=== PATIENT | female | born 1935 | race Two or more races ===

== ENCOUNTER 2024-04-22 11:43 | Inpatient (IN) | payer MEDICARE, OTHER ==
[~2024-04-22] VITALS: Ht 152.4 cm; Wt 98.0 kg
--- NOTE | 2024-04-22 12:10 | ED.PDOC ---
Musculoskeletal HPI Comments 88y F who presents to the ED for chief complaint of fall injury. Pt has history of Alzheimer and is on hospice and family states pt had fall this past Tuesday at approx 12 PM. Pt did hit her head but denies any associated loss of consciousness. Pt family noticed pt was in pain by the L lower hip area when attempting to move her and states they called EMS for pt to be evaluated for her pain. Pt in the ED, is alert but unable to answer any questions at this time. EMS states pt had no shortening, bruising, redness or swelling near R hip but states pt was in pain when attempting to move her to EMS gurney. Pt otherwise denies any other symptoms at this time. Chief Complaint: Fall Injury Time Seen by MD: 12:06 Reviewed Notes: Nurses Notes, Medications, Allergies Allergies: Coded Allergies: NO KNOWN ALLERGIES (Unverified , 04/22/24) Information Source: Emergency Med Personnel Mode of Arrival: EMS Brought in by: EMS Location: Right Extremity Location: Hip Timing: Days Prehospital treatment: None Severity: Moderate Able to Move Extremity: Yes Bear Weight: Limited Pain: Moderate Mechanism: Spontaneous Circumstances: Fall Onset of Symptoms: Spontaneous Symptoms: Pain DVT Risk Factors: NONE Last Tetanus: Unknown Associated signs and symptoms: None Past Medical History PAST MEDICAL HISTORY: DM, HTN Past Medical History (Other): alzheimers Surgical History: Unknown BACTERIOLOGIST PHARMACEUTICAL History: Denies all BACTERIOLOGIST PHARMACEUTICAL Hx Family History Family History: Unknown Social History Smoker: Non-Smoker Alcohol: Denies ETOH Use Drugs: Denies Drug Use 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 Constitutional: denies: chills, diaphoresis, fatigue, fever, malaise, sweats, weakness, others EENTM: denies: blurred vision, double vision, ear bleeding, ear discharge, ear drainage, ear pain, ear ringing, eye pain, eye redness, hearing loss, mouth pain, mouth swelling, nasal discharge, nose bleeding, nose congestion, nose pain, photophobia, tearing, throat pain, throat swelling, voice changes, others Respiratory: denies: cough, hemoptysis, orthopnea, SOB at rest, shortness of breath, SOB with excertion, stridor, wheezing, others Cardiovascular: denies: chest pain, dizzy spells, diaphoresis, Dyspnea on exertion, edema, irregular heart beat, left arm pain, lightheadedness, palpitations, PND, syncope, others Gastrointestinal: denies: abdomen distended, abdominal pain, blood streaked bowels, constipated, diarrhea, dysphagia, difficulty swallowing, hematemesis, melena, nausea, poor appetite, poor fluid intake, rectal bleeding, rectal pain, vomiting, others Genitourinary: denies: abnormal vagina bleeding, burning, dyspareunia, dysuria, flank pain, frequency, hematuria, incontinence, pain, , vagina discharge, urgency, others Neurological: denies: dizziness, fainting, headache, left sided numbness, left sided weakness, numbness, paresthesia, pre-existing deficit, right sided numbness, right sided weakness, seizure, speech problems, tingling, tremors, weakness, others Musculoskeletal: reports: joint pain (r hip); denies: back pain, gout, joint swelling, muscle pain, muscle stiffness, neck pain, others Integumetry: denies: bruises, change in color, change in hair/nails, dryness, laceration, lesions, lumps, rash, wounds, others Allergic/Immunocompromised: denies: Difficulty Healing, Frequent Infections, Hives, Itching, others Hematologic/Lymphatic: denies: anemia, blood clots, easy bleeding, easy bruising, swollen glands, others Endocrine: denies: excessive hunger, excessive sweating, excessive thirst, excessive urination, flushing, intolerance to cold, intolerance to heat, unexplained weight gain, unexplained weight loss, others Psychiatric: denies: anxiety, bipolar disorder, depression, hopeless, panic disorder, schizophrenia, sleepless, suicidal, others All Other Systems: Reviewed and Negative Physical Exam General Appearance: Moderate Distress HEENT: Normal ENT Inspection, Pharynx Normal, TMs Normal Neck: Full Range of Motion, Non-Tender, Normal, Normal Inspection Respiratory: Chest Non-Tender, Lungs Clear, No Accessory Muscle Use, No Respiratory Distress, Normal Breath Sounds Cardiovascular: No Edema, No JVD, No Murmur, No Gallop, Normal Peripheral Pulses, Regular Rate/Rhythm Breast Exam: Deferred Gastrointestinal: No Organomegaly, Non Tender, No Pulsatile Mass, Normal Bowel Sounds, Soft Genitalia: Deferred Pelvic: Deferred Rectal: Deferred Extremities: No calf tenderness, Normal capillary refill, No pedal edema Musculoskeletal : Location: Left Extremity Location: Hip Apperance: Deformity, Limited ROM, Tenderness: Moderate Neurologic: Alert, body service team member II-XII nml as Tested, No Motor Deficits, Normal Affect, Normal Mood, No Sensory Deficits Cerebellar Function: Normal Reflexes: Normal Skin: Dry, Normal Color, Warm Lymphatic: No Adenopathy Was a procedure done? Was a procedure done?: No Differential Diagnosis EXT Differential Diagnosis: Fracture, Sprain, Dislocation, DJD, Contusion, Strain, Rheumatoid, Arthritis X-Ray, Labs, Meds, VS Vital Signs Date Time Temp Pulse Resp B/P (MAP) Pulse Ox O2 Delivery O2 Flow Rate FiO2 04/22/24 11:51 98.8 92 16 124/75 (91) 97 Lab Test 04/22/24 12:33 Range/Units White Blood Count 8.7 4.4-10.8 10^3/uL Red Blood Count 3.48 L 4.0-5.20 10^6/uL Hemoglobin 11.3 L 12.2-16.2 g/dL Hematocrit 33.5 L 36.0-46.0 % Mean Corpuscular Volume 96.5 80.0-100.0 fL Mean Corpuscular Hemoglobin 32.5 H 28.0-32.0 pg Mean Corpuscular Hemoglobin Concent 33.7 32.0-36.0 g/dL Red Cell Distribution Width 13.7 11.8-14.3 % Platelet Count 363 140-450 10^3/uL Mean Platelet Volume 7.4 6.9-10.8 fL Neutrophils (%) (Auto) 71.7 37.0-80.0 % Lymphocytes (%) (Auto) 18.9 10.0-50.0 % Monocytes (%) (Auto) 6.3 0.0-12.0 % Eosinophils (%) (Auto) 2.1 0.0-7.0 % Basophils (%) (Auto) 1.0 0.0-2.0 % Neutrophils # (Auto) 6.2 1.6-8.6 10 ^3/uL Lymphocytes # (Auto) 1.6 0.4-5.4 10 ^3/uL Monocytes # (Auto) 0.5 0-1.3 10 ^3/uL Eosinophils # (Auto) 0.2 0-0.8 10 ^3/uL Basophils # (Auto) 0.1 0-0.2 10 ^3/uL Nucleated Red Blood Cells 0.1 % Sodium Level 139 136-145 mmol/L Potassium Level 4.3 3.5-5.1 mmol/L Chloride Level 110 H 98-107 mmol/L Carbon Dioxide Level 24 20-31 mmol/L Anion Gap 5 5-15 Blood Urea Nitrogen 22 9-23 mg/dL Creatinine 0.90 0.550-1.02 mg/dL Glomerular Filtration Rate Calc 61 >90 mL/min BUN/Creatinine Ratio 24.4 H 10.0-20.0 Serum Glucose 116 H 74-106 mg/dL Calcium Level 9.2 8.7-10.4 mg/dL The CBC shows mild anemia with a hemoglobin of 11.3 and hematocrit of 33.5 The chemistry panel is within normal limits X-ray of the left hip shows:TECHNIQUE: XY L HIP COMPLETE XRAY Findings/Impression: 2 views of the left hip. Impacted, transcervical neck fracture of the left femur. There is no evidence of dislocation, blastic, or lytic lesions. No radiopaque foreign bodies. No joint effusion or superficial soft tissue abnormalities. IV Hep-Lock was established A Parker catheter is being placed secondary to the patient's hip fracture The patient was being admitted at this time Images Reviewed?: Images reviewed and evaluated by me Time of 1ST Reevaluation: 12:35 Reevaluation 1ST: Unchanged Time of 2ND Reevaluation: 14:34 Reevaluation 2ND: Unchanged Patient Education/Counseling: Diagnosis, Treatment, Prognosis Family Education/Counseling: No Family Present Departure 1 Departure Time of Disposition: 14:34 Impression: Primary Impression: Left displaced femoral neck fracture Additional Impression: History of fall Disposition: ADMITTED INPATIENT Admit to: Med Surg Condition: Fair Critical Care Note Critical Care Time?: No Stability Stability form required: Yes Unstable for transfer: ED Physician Assesment (Clinical assesment) Heart Score Heart Score: Heart Score Response (Comments) Value History N/A 0 EKG N/A 0 Age N/A 0 Risk Factors N/A 0 Troponin N/A 0 Total 0 I personally scribed for JOSE D TOVAR MD ([email or web address]) on 04/22/24 at 12:10. Elec tronically submitted by Anselmo Holt ([email or web address]). I personally scribed for JOSE D TOVAR MD ([email or web address]) on 04/22/24 at 12:12. Electronically submitted by Anselmo Holt ([email or web address]). JOSE D TOVAR MD Apr 22, 2024 12:10
[2024-04-22 12:56] LABS: Basophils # (auto) 0.1 10 ^3/uL (0-0.2); Eosinophils # (auto) 0.2 10 ^3/uL (0-0.8); Eosinophils % (auto) 2.1 % (0.0-7.0); Hematocrit 33.5 % (36.0-46.0); Hemoglobin 11.3 g/dL (12.2-16.2); Lymphocytes # (auto) 1.6 10 ^3/uL (0.4-5.4); Lymphocytes % (auto) 18.9 % (10.0-50.0); Mean Corpuscular Hemoglobin 32.5 pg (28.0-32.0); Mean Corpuscular Hgb Conc. 33.7 g/dL (32.0-36.0); Mean Corpuscular Volume 96.5 fL (80.0-100.0); Monocytes # (auto) 0.5 10 ^3/uL (0-1.3); Monocytes % (auto) 6.3 % (0.0-12.0); Neutrophils # (auto) 6.2 10 ^3/uL (1.6-8.6); Neutrophils % (auto) 71.7 % (37.0-80.0); Nucleated Red Blood Cells % 0.1 %; Platelet Count (auto) 363 10^3/uL (140-450); Red Blood Cells 3.48 10^6/uL (4.0-5.20); Red Cell Distribution Width 13.7 % (11.8-14.3); White Blood Cell 8.7 10^3/uL (4.4-10.8)
[2024-04-22 13:07] LABS: Chloride 110 mmol/L (98-107); Potassium 4.3 mmol/L (3.5-5.1); Sodium 139 mmol/L (136-145)
[2024-04-22 13:08] LABS: Anion Gap 5 (5-15); Carbon Dioxide 24 mmol/L (20-31)
[2024-04-22 13:09] LABS: Calcium 9.2 mg/dL (8.7-10.4)
[2024-04-22 13:13] LABS: Glucose 116 mg/dL (74-106)
[2024-04-22 13:14] LABS: BUN/Creatinine Ratio 24.4 (10.0-20.0); Blood Urea Nitrogen 22 mg/dL (9-23)
--- NOTE | 2024-04-22 14:29 | DVH ---
EXAM: XY L HIP COMPLETE XRAY CLINICAL HISTORY: fall COMPARISON: None TECHNIQUE: XY L HIP COMPLETE XRAY Findings/Impression: 2 views of the left hip. Impacted, transcervical neck fracture of the left femur. There is no evidence of dislocation, blastic, or lytic lesions. No radiopaque foreign bodies. No joint effusion or superficial soft tissue abnormalities.
[2024-04-22 16:00] VITALS: PULSE 89; RESP 13; O2SAT 94
[2024-04-22 16:36] LABS: Urine Bacteria FEW /hpf (None Seen); Urine Blood Negative /uL (Negative); Urine Budding Yeast MODERATE /hpf (None Seen); Urine Clarity Turbid (Clear); Urine Color Yellow (Yellow); Urine Mucus FEW (None Seen); Urine Protein, UAD 2+ (Negative); Urine Specific Gravity 1.023 (1.001-1.035); Urine Urobilinogen Normal (Negative); Urine WBC 27 /hpf (0 - 5); Urine pH 7.5 (5.0-9.0)
[2024-04-22] MEDS ORDERED: HYDROcodone-ACET 5/325MG TAB PO PRN (18:00)
[2024-04-22] MEDS ORDERED: DOCUSATE SOD 100 MG CAP PO PRN (18:00)
[2024-04-22] MEDS ORDERED: ONDANSETRON HCL 4 MG/2 ML VIAL IV PRN (18:00)
[2024-04-22] MEDS ORDERED: ACETAMINOPHEN 325 MG TAB PO PRN (18:00)
[2024-04-22] MEDS ORDERED: MAALOX PLUS or MAALOX 30 ML PO PRN (18:00)
--- NOTE | 2024-04-22 18:50 | DVHHP2 ---
History of Present Illness Reason for Visit: Fall History of Present Illness 88 yo female with a history of living at home with a family patient has fallen at home and had complaints of pain from the fall due to dementia patient has limited conversation patient family wants to discus the care options as the patient is DNR and has severe dementia NEEDLEWORKER: Dementia Review of Systems Constitutional: No: Fever, Chills, Sweats, Weakness, Malaise, Other Eyes: No: Pain, Vision change, Conjunctivae inflammation, Eyelid inflammation, Other, Redness ENT: No: Ear pain, Ear discharge, Nose pain, Nose discharge, Nose congestion, Mouth pain, Mouth swelling, Throat pain, Throat swelling, Other Respiratory: No: Cough, Dry, Shortness of breath, SOB with excertion, Wheezing, Hemoptysis, Pleuritic Pain, Sputum, Wheezing, Other Cardiovascular: No: Chest Pain, Palpitations, Orthopnea, Paroxysmal Noc. Dyspnea, Edema, Lt Headedness, Other Gastrointestinal: No: Nausea, Vomiting, Abdominal Pain, Diarrhea, Constipation, Melena, Hematochezia, Other Genitourinary: No Dysuria, No Frequency, No Incontinence, No Hematuria, No Retention, No Other Musculoskeletal: leg pain; No: other, neck pain, shoulder pain, arm pain, back pain, hand pain, foot pain Skin: No: Rash, Lesions, Jaundice, Bruising, Other Neurological: No: Weakness, Numbness, Incoordination, Change in speech, Confusion, Seizures, Other Allergies: Coded Allergies: NO KNOWN ALLERGIES (Unverified , 04/22/24) Exam Vital Signs Vital Signs Date Time Temp Pulse Resp B/P (MAP) Pulse Ox O2 Delivery O2 Flow Rate FiO2 04/22/24 18:00 18 132/91 (105) 94 04/22/24 17:00 85 04/22/24 16:00 97.9 97.9 04/22/24 16:00 Room Air* 0 21 General Appearance: Alert, Oriented X3 HEENT: Atraumatic, PERRLA Respiratory: Clear to auscultation, Normal air movement Cardiovascular: Regular rate, Normal S1, Normal S2 Abdominal: Soft Extremities: No clubbing, No cyanosis Skin: No rashes, No breakdown Psych/Mental Status: Other (dementia ) Labs/Xrays Labs Test 04/22/24 16:23 11/10/24 12:33 Range/Units Urine Color Yellow Yellow Urine Clarity Turbid H Clear Urine pH 7.5 5.0-9.0 Urine Specific [place] 1.023 1.001-1.035 Urine Protein 2+ H Negative Urine Ketones Negative Negative Urine Blood Negative Negative /uL Urine Nitrite Negative Negative Urine Bilirubin Negative Negative Urine Urobilinogen Normal Negative mg/dL Urine Leukocyte Esterase 2+ Negative /uL Urine RBC <1 0 - 4 /hpf Urine WBC 27 0 - 5 /hpf Urine Squamous Epithelial Cells Mod <5 /hpf Urine Triple Phosphate Crystals Few None Seen /hpf Urine Bacteria Few H None Seen /hpf Urine Mucus Few None Seen Urine Yeast (Budding) Moderate None Seen /hpf Urine Glucose Normal Normal mg/dL White Blood Count 8.7 4.4-10.8 10^3/uL Red Blood Count 3.48 L 4.0-5.20 10^6/uL Hemoglobin 11.3 L 12.2-16.2 g/dL Hematocrit 33.5 L 36.0-46.0 % Mean Corpuscular Volume 96.5 80.0-100.0 fL Mean Corpuscular Hemoglobin 32.5 H 28.0-32.0 pg Mean Corpuscular Hemoglobin Concent 33.7 32.0-36.0 g/dL Red Cell Distribution Width 13.7 11.8-14.3 % Platelet Count 363 140-450 10^3/uL Mean Platelet Volume 7.4 6.9-10.8 fL Neutrophils (%) (Auto) 71.7 37.0-80.0 % Lymphocytes (%) (Auto) 18.9 10.0-50.0 % Monocytes (%) (Auto) 6.3 0.0-12.0 % Eosinophils (%) (Auto) 2.1 0.0-7.0 % Basophils (%) (Auto) 1.0 0.0-2.0 % Neutrophils # (Auto) 6.2 1.6-8.6 10 ^3/uL Lymphocytes # (Auto) 1.6 0.4-5.4 10 ^3/uL Monocytes # (Auto) 0.5 0-1.3 10 ^3/uL Eosinophils # (Auto) 0.2 0-0.8 10 ^3/uL Basophils # (Auto) 0.1 0-0.2 10 ^3/uL Nucleated Red Blood Cells 0.1 % Sodium Level 139 136-145 mmol/L Potassium Level 4.3 3.5-5.1 mmol/L Chloride Level 110 H 98-107 mmol/L Carbon Dioxide Level 24 20-31 mmol/L Anion Gap 5 5-15 Blood Urea Nitrogen 22 9-23 mg/dL Creatinine 0.90 0.550-1.02 mg/dL Glomerular Filtration Rate Calc 61 >90 mL/min BUN/Creatinine Ratio 24.4 H 10.0-20.0 Serum Glucose 116 H 74-106 mg/dL Calcium Level 9.2 8.7-10.4 mg/dL Assessment/Plan Assessment/Plan Admit to Med/surge Hip Fracture orthopedic consult prn pain management continue with home medications patient is hospice patient with DNR Plan discussed with: Daughter My Orders Orders - JAMES AVILA MD Procedure Category Date Status Time * Orthopedic Consult CONS 04/22/24 Transmitted 17:55 Admit ADMIT 04/22/24 Transmitted 17:57 Code Status CODE 04/22/24 Transmitted 17:57 Npo (Nothing By DIET 04/22/24 Transmitted Mouth) Diet Dinner Basic Metabolic Panel LAB 04/23/24 Verified 04:00 Complete Blood Count LAB 04/23/24 Verified 04:00 Patient Condition ORDERS 04/22/24 Transmitted 17:57 Oxygen By Nasal RT 04/22/24 Transmitted Cannula 17:57 Problem List: (1) History of fall (2) Left displaced femoral neck fracture Date of Service: Apr 22, 2024 Billing Provider: JAMES AVILA MD Common Visit Codes: [id number] INP/OBS CARE (MOD) JAMES AVILA MD Apr 22, 2024 18:50
[2024-04-22] MEDS: D5W 5% 1,000 ML IV SCH (19:03)
[2024-04-22 20:44] VITALS: PULSE 92; RESP 25; O2SAT 93
[2024-04-22 21:41] VITALS: BP 144/79; PULSE 91; RESP 17; TEMP 98.4; O2SAT 96
[2024-04-22 21:45] VITALS: BP 144/79; PULSE 91; RESP 12; TEMP 98.4; O2SAT 96
[2024-04-23] VITALS (9 sets, daily range): BP systolic 121–186; BP diastolic 59–81; PULSE 62–90; RESP 17–20; TEMP 97.6–98.9; O2SAT 95–99
[2024-04-23 06:49] LABS: Chloride 108 mmol/L (98-107); Potassium 3.8 mmol/L (3.5-5.1); Sodium 137 mmol/L (136-145)
[2024-04-23 06:50] LABS: Anion Gap 8 (5-15); Carbon Dioxide 21 mmol/L (20-31)
[2024-04-23 06:52] LABS: Basophils # (auto) 0 10 ^3/uL (0-0.2); Basophils % (auto) 0.4 % (0.0-2.0); Eosinophils # (auto) 0.2 10 ^3/uL (0-0.8); Eosinophils % (auto) 2.8 % (0.0-7.0); Hematocrit 29.4 % (36.0-46.0); Lymphocytes # (auto) 1.2 10 ^3/uL (0.4-5.4); Lymphocytes % (auto) 17.7 % (10.0-50.0); Mean Corpuscular Hemoglobin 32.4 pg (28.0-32.0); Mean Corpuscular Hgb Conc. 33.9 g/dL (32.0-36.0); Mean Corpuscular Volume 95.5 fL (80.0-100.0); Monocytes # (auto) 0.5 10 ^3/uL (0-1.3); Neutrophils % (auto) 72.1 % (37.0-80.0); Platelet Count (auto) 354 10^3/uL (140-450); Red Blood Cells 3.08 10^6/uL (4.0-5.20); Red Cell Distribution Width 13.9 % (11.8-14.3); White Blood Cell 6.9 10^3/uL (4.4-10.8)
[2024-04-23 06:55] LABS: BUN/Creatinine Ratio 27.9 (10.0-20.0); Blood Urea Nitrogen 24 mg/dL (9-23); Glucose 132 mg/dL (74-106)
--- NOTE | 2024-04-23 06:56 | DVH ---
CHEST RADIOGRAPH Indication:cad Technique: Single frontal view of the chest was obtained COMPARISON: None FINDINGS: Lines and Tubes: None Lungs: Congestion Pleura: No effusion. No pneumothorax. Cardiomediastinal contours: Unremarkable Bones: Unremarkable IMPRESSION: Mild congestion
[2024-04-23 07:13] LABS: INR 1.1 (0.9-1.15); Partial Thromboplastin Time 36.2 SEC (24.5-34.5); Prothrombin Time 11.6 sec (9.3-11.8)
[2024-04-23] MEDS: cefTRIAXone 1GM/50ML D5W 50 ML IV SCH (10:56)
--- NOTE | 2024-04-23 11:11 | DVHPNRES ---
Progress Note Date Seen: Apr 23, 2024 Resident Creating Document: SHAD WRIGHT RESIDENT Has the PT tested + for MRSA If YES, has PT been informed?: No Medical Necessity Reason Pt with a Central, PICC or Fol: No Subjective Review of Systems This is an 88-year-old female with past medical history of severe advanced dementia, presents to the ED brought by her family due to a mechanical fall at home while walking. The patient was initially complaining of pain in the left side of the hip. Upon my examination patient is but not oriented and not able to maintain a proper conversation. Initial chest x-ray was showing very mild vascular congestion but grossly unremarkable. Hip x-ray is showing impacted transcervical neck fracture of the left femur. Findings were discussed with her daughter Inge which agreed on proceeding with left hip surgical repair. Orthopedic consult pulse placed and patient was admitted for further assessment and management. Patient is DNR with severe advanced dementia. Patient seen and examined at bedside. Patient is alert but not oriented most likely due to advanced dementia. The patient is unable to maintain proper conversation with medical staff. On my examination, both lower extremities are symmetric and there is no shortage of the left lower extremity compared to the right. There is no external rotation observed at this time. Patient will be scheduled for open internal fixation of the left hip fracture today (04/23/24). ROS unable to obtain due to patient's underlying severe advanced dementia. Objective vital signs Vital Sign Date Time Temp Pulse Resp B/P (MAP) Pulse Ox O2 Delivery O2 Flow Rate FiO2 04/23/24 09:27 97.8 86 18 126/74 (91) 96 97.8 04/22/24 21:45 Room Air* 0 21 Total Intake and Output 04/22/24 04/22/24 04/23/24 15:00 23:00 07:00 Intake Total 120 ml 0 ml Output Total 170 ml Balance 120 ml -170 ml medications Current Medications Medications Dose Ordered Sig/Julio C Route Start Time Stop Time Status Last Admin Dose Admin Al Hydrox/Mg Hydrox/Simethicone 30 ml Q6HP PRN PO 04/22/24 18:00 Docusate Sodium 100 mg BIDPRN PRN PO 04/22/24 18:00 Acetaminophen 650 mg Q6HP PRN PO 04/22/24 18:00 Dextrose 1,000 ml @ 60 mls/hr [id number] IV 04/22/24 18:00 04/22/24 19:03 60 MLS/HR Acetaminophen/ Hydrocodone Bitart 1 tab Q4HP PRN PO 04/22/24 18:00 Ondansetron HCl 4 mg Q4HP PRN IV 04/22/24 18:00 Morphine Sulfate 2 mg Q4HPRN PRN IV 04/22/24 18:00 Ceftriaxone Sodium 50 ml @ 100 mls/hr DAILY@09 IV 04/23/24 10:15 04/23/24 10:56 100 MLS/HR Examination Physical Examination General: Patient alert but not oriented. patient is not able to maintain a proper conversation likely due to advance dementia. HEENT: Normocephalic, atraumatic, moist mucous membranes Respiratory/pulmonary: Clear lungs bilaterally, no associated crackles or wheezes. Cardiovascular: Normal heart sounds S1 and S2 with no associated murmurs Abdomen: Abdomen nondistended, there is no pain to palpation in any of the abdominal quadrants, no palpable masses. Extremities: There is no shortage or external rotation of the left lower extremity compared to the right. Both lower extremity appears symmetric. There is no peripheral edema present at the lower extremities. Peripheral Pulses: 3+ Radial (R). 3+ Radial (L). 3+ Dorsalis pedis (R). 3+ Dorsalis pedis(L) Skin: No rashes or pruritus, there is no sacral edema present at this time. Neurological: Severe advanced dementia, unable to evaluate cranial nerves. laboratory and microbiology Laboratory Tests 04/23/24 06:19 Test 04/23/24 06:19 Range/Units Serum Glucose 132 H 74-106 mg/dL Problem List/Assessment/Plan Problem List/Assessment/Plan Assessment/Plan Acute transcervical neck fracture of left femur, due to mechanical fall -status post mechanical fall -hip x-ray showed impacted transcervical neck fracture of the left femur -start morphine, [place] for pain modulation -orthopedic surgery was consulted -patient will undergo open reduction and internal fixation of left hip fracture -NPO at this time UTI -urinalysis came back positive for UTI -start IV ceftriaxone -order urine culture Severe advanced dementia -patient unable to communicate and maintain a conversation -patient is alert but not oriented -on home hospice Primary hypertension -start losartan 12.5 mg q.d. -monitor blood pressure closely -control pain Type 2 diabetes mellitus -ordered hemoglobin A1c -Monitor BG at this time Goals of care discussed with the family at bedside for >23min, DNR Plan discussed with Dr. Francois Plan discussed with: Daughter, Other My Orders My Orders Orders - SHAD WRIGHT Procedure Category Date Status Time Ceftriaxone 1gm/50ml PHA 04/23/24 In Process D5w (Rocephin) 10:15 Urine Bacterial LEONELA 04/23/24 Logged Culture 10:06 Vitamin D, 25-Hydroxy LAB 04/23/24 In Process 10:06 Date of Service: Apr 23, 2024 Billing Provider: BRYCE FRANCIOS MD Common Visit Codes: [id number] INP/OBS CARE(HIGH) Secondary Visit Codes: [id number] CARE PLAN 30 MINUTES SHAD WRIGHT Apr 23, 2024 11:11 BRYCE FRANCOIS MD Apr 23, 2024 20:54
[2024-04-23] MEDS ORDERED: KETAMINE 50mg/ML 1ml syringe ONE (12:50)
[2024-04-23] MEDS ORDERED: MIDAZOLAM HCL 2MG/2ML 2ml VIAL (1mg/ml) ONE (14:51)
[2024-04-23] MEDS ORDERED: fentaNYL CITRATE 100 MCG/2 ML VL ONE (14:51)
[2024-04-23] MEDS ORDERED: PROPOFOL 10 MG/ML 20 ML IV ONE (15:36)
[2024-04-23] MEDS: ONDANSETRON HCL 4 MG/2 ML VIAL IV ONE (16:00)
--- NOTE | 2024-04-23 16:00 | DVH ---
CLINICAL INDICATION: LEFT HIP PINNING TECHNIQUE: 17 radiographic views of the open reduction internal fixation of a left fracture were obta ined. Comparison: XY L HIP COMPLETE XRAY on DOS: 04/22/24 FINDINGS/IMPRESSION: 16 images open reduction internal fixation left hip fracture. Fluoro time 22.9 seconds Cumulative dose: 1.87 mGy
--- NOTE | 2024-04-23 16:01 | DVH ---
C-ARM FLUOROSCOPY: PROCEDURE: Left hip ORIF FLUOROSCOPY TIME: 22.9 seconds DAP: 1.87 mgy FINDINGS: Spot intraoperative C arm radiographs demonstrating left hip ORIF. IMPRESSION: Please refer to surgical report for detailed findings.
[2024-04-23] MEDS: HYDROmorphone HCL 2 MG/ML VL/or syr IV PRN (16:20)
--- NOTE | 2024-04-23 17:42 | DVHOP ---
DATE OF SURGERY: 04/22/2024 PREOPERATIVE DIAGNOSIS: Left hip femoral neck fracture. POSTOPERATIVE DIAGNOSIS: Left hip femoral neck fracture. PROCEDURES: * Open reduction internal fixation of left femoral neck fracture. * Left hip stress radiographs. SURGEON: Quinn Titus MD ANESTHESIA: General. COMPLICATIONS: None. CONDITION: Stable to PACU. ASSESSMENT AND PLAN: 1. Toe touch weightbearing on the left lower extremity. 2. PT, OT out of bed daily. 3. Follow up in 2 weeks' time. SURGICAL INDICATIONS: Estefanía Knott is an 88-year-old demented female who was noted to have a displaced femoral neck fracture. The patient was educated on the risks and benefits of surgical and nonsurgical treatment. The family was educated on the risks associated with surgical treatment of the left lower extremity. They understood the risks associated with fracture fixation of the left lower extremity and opted for surgical fixation. DESCRIPTION OF PROCEDURE: The patient was seen in the preoperative holding area and the left lower extremity was marked. The patient was brought to the operating room suite. General anesthesia was then induced. Timeout was performed according to the hospital protocol. AP and lateral x-rays were then checked. The patient was given Ancef for infection prophylaxis and a 3 cm incision was made on the lateral aspect of the trochanter. A guidewire was then placed on AP and lateral x-rays to be center-center and then an inferior screw was also placed slightly posterior. Once that was then done, it was measured to be 90 mm inferiorly and 85 mm superiorly, it was then drilled followed by a simply fixed 90 mm screw inferiorly and 85 mm screw superiorly and then using a percutaneous technique, the locking screw with a 0 degree slot was then used for stabilization and locking. It was measured to be 65 mm length. The drill was then measured, followed by 65 mm screw then placed in the appropriate position. Once that was then done, the stress radiographs of the left hip showed actual compression. There is no fracture gapping. Stress radiographs were then done, the wound was irrigated with copious amount of saline and closed with 0 Vicryl, 2-0 Vicryl and kristi. The patient will be toe touch weightbearing on the left lower extremity. PT, OT out of bed daily. Follow up in 2 weeks' time. MD ROMULO Howell/BILL/CINTIA TID: [id number] RECEIPT: [id number]
[2024-04-24] VITALS (10 sets, daily range): BP systolic 105–130; BP diastolic 50–78; PULSE 79–114; RESP 15–21; TEMP 96.7–98.8; O2SAT 92–97
[2024-04-24 06:41] LABS: Anion Gap 7 (5-15); Carbon Dioxide 24 mmol/L (20-31); Chloride 107 mmol/L (98-107); Sodium 138 mmol/L (136-145)
[2024-04-24 06:43] LABS: Calcium 8.5 mg/dL (8.7-10.4)
[2024-04-24 06:47] LABS: BUN/Creatinine Ratio 24.1 (10.0-20.0); Blood Urea Nitrogen 20 mg/dL (9-23); Glucose 119 mg/dL (74-106)
[2024-04-24 06:48] LABS: Magnesium 1.8 mg/dL (1.6-2.6)
[2024-04-24 06:58] LABS: Basophils # (auto) 0 10 ^3/uL (0-0.2); Basophils % (auto) 0.3 % (0.0-2.0); Eosinophils # (auto) 0.2 10 ^3/uL (0-0.8); Eosinophils % (auto) 2.8 % (0.0-7.0); Hematocrit 31.8 % (36.0-46.0); Hemoglobin 10.2 g/dL (12.2-16.2); Lymphocytes % (auto) 13.4 % (10.0-50.0); Mean Corpuscular Hemoglobin 31.5 pg (28.0-32.0); Mean Corpuscular Hgb Conc. 32.1 g/dL (32.0-36.0); Mean Corpuscular Volume 98.2 fL (80.0-100.0); Monocytes # (auto) 0.4 10 ^3/uL (0-1.3); Monocytes % (auto) 6.2 % (0.0-12.0); Neutrophils # (auto) 5.6 10 ^3/uL (1.6-8.6); Neutrophils % (auto) 77.3 % (37.0-80.0); Platelet Count (auto) 361 10^3/uL (140-450); Red Blood Cells 3.24 10^6/uL (4.0-5.20); Red Cell Distribution Width 14.4 % (11.8-14.3); White Blood Cell 7.3 10^3/uL (4.4-10.8)
[2024-04-24] MEDS: LOSARTAN POTASSIUM 25 MG TAB PO SCH (09:52)
--- NOTE | 2024-04-24 11:02 | DVHPNRES ---
Progress Note Date Seen: Apr 24, 2024 Resident Creating Document: SHAD WRIGHT RESIDENT Has the PT tested + for MRSA If YES, has PT been informed?: No Medical Necessity Reason Pt with a Central, PICC or Fol: No Subjective Review of Systems This is an 88-year-old female with past medical history of severe advanced dementia, presents to the ED brought by her family due to a mechanical fall at home while walking. The patient was initially complaining of pain in the left side of the hip. Upon my examination patient is but not oriented and not able to maintain a proper conversation. Initial chest x-ray was showing very mild vascular congestion but grossly unremarkable. Hip x-ray is showing impacted transcervical neck fracture of the left femur. Findings were discussed with her daughter Inge which agreed on proceeding with left hip surgical repair. Orthopedic consult pulse placed and patient was admitted for further assessment and management. Patient is DNR with severe advanced dementia. Patient seen and examined at bedside. Today, patient is status post open reduction with internal fixation of the left femoral neck fracture. The patient has advanced dementia and is not able to establish a normal communication with medical staff. Vital signs and physical examination was grossly unremarkable. Morning labs were also on normal range. We placed consult for physical therapy to start working with the patient promoting active movement. Patient appears in no acute distress and is not complaining of pain at this time. Will continue monitoring her and working on muscle strength. ROS unable to be obtained due to patient current advanced dementia. Objective vital signs Vital Sign Date Time Temp Pulse Resp B/P (MAP) Pulse Ox O2 Delivery O2 Flow Rate FiO2 04/24/24 09:52 138/68 04/24/24 08:32 96.7 94 16 97 96.7 04/23/24 20:00 Room Air* 0 21 Total Intake and Output 04/23/24 04/23/24 04/24/24 15:00 23:00 07:00 Intake Total 50 ml 0 ml 60 ml Output Total 500 ml 400 ml Balance 50 ml -500 ml -340 ml medications Current Medications Medications Dose Ordered Sig/Julio C Route Start Time Stop Time Status Last Admin Dose Admin Al Hydrox/Mg Hydrox/Simethicone 30 ml Q6HP PRN PO 04/22/24 18:00 Docusate Sodium 100 mg BIDPRN PRN PO 04/22/24 18:00 Acetaminophen 650 mg Q6HP PRN PO 04/22/24 18:00 Dextrose 1,000 ml @ 60 mls/hr [id number] IV 04/22/24 18:00 04/24/24 06:12 60 MLS/HR Acetaminophen/ Hydrocodone Bitart 1 tab Q4HP PRN PO 04/22/24 18:00 Ondansetron HCl 4 mg Q4HP PRN IV 04/22/24 18:00 Morphine Sulfate 2 mg Q4HPRN PRN IV 04/22/24 18:00 Ceftriaxone Sodium 50 ml @ 100 mls/hr DAILY@09 IV 04/23/24 10:15 04/24/24 09:52 100 MLS/HR Losartan Potassium 12.5 mg DAILY PO 04/24/24 10:00 04/24/24 09:52 12.5 MG Examination Physical Examination General: Patient alert but not oriented. patient is not able to maintain a proper conversation likely due to advance dementia. HEENT: Normocephalic, atraumatic, moist mucous membranes Respiratory/pulmonary: Clear lungs bilaterally, no associated crackles or wheezes. Cardiovascular: Normal heart sounds S1 and S2 with no associated murmurs Abdomen: Abdomen nondistended, there is no pain to palpation in any of the abdominal quadrants, no palpable masses. Extremities: Both lower extremity appears symmetric. There is no peripheral edema present at the lower extremities. Peripheral Pulses: 3+ Radial (R). 3+ Radial (L). 3+ Dorsalis pedis (R). 3+ Dorsalis pedis(L) Skin: No rashes or pruritus, there is no sacral edema present at this time. Neurological: Severe advanced dementia, unable to evaluate cranial nerves. laboratory and microbiology Laboratory Tests 04/24/24 06:01 Test 04/24/24 06:01 Range/Units Serum Glucose 119 H 74-106 mg/dL Problem List/Assessment/Plan Problem List/Assessment/Plan Assessment/Plan Acute transcervical neck fracture of left femur, due to mechanical fall S/P open reduction with internal fixation of the left femoral neck fracture day 1 -status post mechanical fall -hip x-ray showed impacted transcervical neck fracture of the left femur -Continue morphine, [place] for pain modulation -orthopedic surgery on board, performed open reduction with internal fixation of left femoral neck fracture on 04/23/2024 -Resume normal diet (carbohydrate/diabetic) -Start physical therapy UTI -urinalysis came back positive for UTI -Continue IV ceftriaxone -order urine culture, still pending Severe advanced dementia -patient unable to communicate and maintain a conversation -patient is alert but not oriented -on home hospice Primary hypertension -Continue losartan 12.5 mg q.d. -monitor blood pressure closely -control pain Type 2 diabetes mellitus -ordered hemoglobin A1c which came back at 5.9% (prediabetic range) -Monitor BG at this time DVT prophylaxys -Will start DVT prophylaxys after 24hr post surgery Goals of care discussed with the family at bedside for >23min, DNR Plan discussed with Dr. Francois Plan discussed with: Other My Orders My Orders Orders - SHAD WRIGHT Procedure Category Date Status Time Losartan Tablet PHA 04/24/24 In Process (Cozaar Tablet) 10:00 Pt Request For Service PT 04/24/24 Logged 09:07 Date of Service: Apr 24, 2024 Billing Provider: BRYCE FRANCOIS MD Common Visit Codes: [id number] INP/OBS CARE(HIGH) SHAD WRIGHT Apr 24, 2024 11:02 BRYCE FRANCOIS MD Apr 24, 2024 21:03
[2024-04-24] MEDS: MORPHINE SULFATE INJ 2 MG/ml SYRG IV PRN (12:03)
[2024-04-24] MEDS: ENOXAPARIN SOD 40 MG/0.4 ML SYRINGE SC ONE (18:15)
[2024-04-25 01:00] VITALS: BP 106/59; PULSE 104; RESP 16; TEMP 98.5; O2SAT 93
[2024-04-25 05:00] VITALS: BP 90/42; PULSE 94; RESP 16; TEMP 98.4; O2SAT 93
[2024-04-25 06:58] LABS: Basophils # (auto) 0 10 ^3/uL (0-0.2); Basophils % (auto) 0.2 % (0.0-2.0); Eosinophils # (auto) 0.2 10 ^3/uL (0-0.8); Eosinophils % (auto) 3.4 % (0.0-7.0); Hematocrit 28.8 % (36.0-46.0); Hemoglobin 9.6 g/dL (12.2-16.2); Lymphocytes # (auto) 1.3 10 ^3/uL (0.4-5.4); Lymphocytes % (auto) 18.9 % (10.0-50.0); Mean Corpuscular Hemoglobin 32.2 pg (28.0-32.0); Mean Corpuscular Hgb Conc. 33.3 g/dL (32.0-36.0); Mean Corpuscular Volume 96.6 fL (80.0-100.0); Monocytes # (auto) 0.6 10 ^3/uL (0-1.3); Monocytes % (auto) 8.6 % (0.0-12.0); Neutrophils # (auto) 4.9 10 ^3/uL (1.6-8.6); Neutrophils % (auto) 68.9 % (37.0-80.0); Nucleated Red Blood Cells % 0.2 %; Platelet Count (auto) 335 10^3/uL (140-450); Red Blood Cells 2.99 10^6/uL (4.0-5.20); Red Cell Distribution Width 13.9 % (11.8-14.3); White Blood Cell 7.1 10^3/uL (4.4-10.8)
[2024-04-25 07:19] LABS: Alanine Aminotransferase 14 U/L (7-40); Albumin 3.5 g/dL (3.2-4.8); Alkaline Phosphatase 102 U/L (46-116); Anion Gap 9 (5-15); Aspartate Aminotransferase 17 U/L (13-40); BUN/Creatinine Ratio 19.8 (10.0-20.0); Blood Urea Nitrogen 17 mg/dL (9-23); Calcium 8.7 mg/dL (8.7-10.4); Carbon Dioxide 20 mmol/L (20-31); Chloride 106 mmol/L (98-107); Glucose 122 mg/dL (74-106); Potassium 3.8 mmol/L (3.5-5.1); Sodium 135 mmol/L (136-145)
[2024-04-25 07:20] LABS: Bilirubin, Total 0.4 mg/dL (0.2-1.0); Total Protein 6.3 g/dL (5.7-8.2)
[2024-04-25] MEDS: ENOXAPARIN SOD 40 MG/0.4 ML SYRINGE SC SCH (08:52)
[2024-04-25 09:00] VITALS: BP_SYST 111; BP_SYST 145; BP_DIAS 60; BP_DIAS 62; PULSE 70; PULSE 78; RESP 16; RESP 18; TEMP 98; O2SAT 94; O2SAT 99
--- NOTE | 2024-04-25 11:38 | DVHPNRES ---
Progress Note Date Seen: Apr 25, 2024 Resident Creating Document: SHAD WRIGHT RESIDENT Has the PT tested + for MRSA If YES, has PT been informed?: No Medical Necessity Reason Pt with a Central, PICC or Fol: No Subjective Review of Systems This is an 88-year-old female with past medical history of severe advanced dementia, presents to the ED brought by her family due to a mechanical fall at home while walking. The patient was initially complaining of pain in the left side of the hip. Upon my examination patient is but not oriented and not able to maintain a proper conversation. Initial chest x-ray was showing very mild vascular congestion but grossly unremarkable. Hip x-ray is showing impacted transcervical neck fracture of the left femur. Findings were discussed with her daughter Inge which agreed on proceeding with left hip surgical repair. Orthopedic consult pulse placed and patient was admitted for further assessment and management. Patient is DNR with severe advanced dementia. Patient seen and examined at bedside. Patient has severe advanced dementia and is not able to communicate adequately with medical staff. We will place order for physical therapy twice a day to try to move her around and decrease deconditioning. Patient is also on prophylactic enoxaparin 40 mg sc q.d.. Patient admits to continue anticoagulation prophylaxis for at least six weeks. We will wait for physical therapy and most likely discharge the patient tomorrow. ROS unable to obtain due to severe advanced dementia. Objective vital signs Vital Sign Date Time Temp Pulse Resp B/P (MAP) Pulse Ox O2 Delivery O2 Flow Rate FiO2 04/25/24 09:00 98.0 78 16 111/60 (77) 94 98.0 04/25/24 07:45 Room Air* 0 21 Total Intake and Output 04/24/24 04/24/24 04/25/24 15:00 23:00 07:00 Intake Total 250 ml 600 ml Balance 250 ml 600 ml medications Current Medications Medications Dose Ordered Sig/Julio C Route Start Time Stop Time Status Last Admin Dose Admin Al Hydrox/Mg Hydrox/Simethicone 30 ml Q6HP PRN PO 04/22/24 18:00 Docusate Sodium 100 mg BIDPRN PRN PO 04/22/24 18:00 Acetaminophen 650 mg Q6HP PRN PO 04/22/24 18:00 Dextrose 1,000 ml @ 60 mls/hr [id number] IV 04/22/24 18:00 04/24/24 23:50 60 MLS/HR Acetaminophen/ Hydrocodone Bitart 1 tab Q4HP PRN PO 04/22/24 18:00 Ondansetron HCl 4 mg Q4HP PRN IV 04/22/24 18:00 Morphine Sulfate 2 mg Q4HPRN PRN IV 04/22/24 18:00 04/24/24 12:03 2 MG Ceftriaxone Sodium 50 ml @ 100 mls/hr DAILY@09 IV 04/23/24 10:15 04/25/24 08:52 100 MLS/HR Losartan Potassium 12.5 mg DAILY PO 04/24/24 10:00 04/24/24 09:52 12.5 MG Enoxaparin Sodium 40 mg DAILY SC 04/25/24 10:00 04/25/24 08:52 40 MG Examination Physical Examination General: Patient alert but disoriented, patient speak nonsense words due to dementia. patient is not able to maintain a proper conversation likely due to advance dementia. HEENT: Normocephalic, atraumatic, moist mucous membranes Respiratory/pulmonary: Clear lungs bilaterally, no associated crackles or wheezes. Cardiovascular: Normal heart sounds S1 and S2 with no associated murmurs Abdomen: Abdomen nondistended, there is no pain to palpation in any of the abdominal quadrants, no palpable masses. Extremities: Both lower extremity appears symmetric. There is no peripheral edema present at the lower extremities. Peripheral Pulses: 3+ Radial (R). 3+ Radial (L). 3+ Dorsalis pedis (R). 3+ Dorsalis pedis(L) Skin: No rashes or pruritus, there is no sacral edema present at this time. Neurological: Severe advanced dementia, unable to evaluate cranial nerves. laboratory and microbiology Laboratory Tests 04/25/24 05:18 Test 04/25/24 05:18 Range/Units Serum Glucose 122 H 74-106 mg/dL Microbiology Date/Time Source Procedure Growth Status 04/22/24 16:23 Voided Urine Urine Culture - Preliminary Resulted Problem List/Assessment/Plan Problem List/Assessment/Plan Assessment/Plan Acute transcervical neck fracture of left femur, due to mechanical fall S/P open reduction with internal fixation of the left femoral neck fracture day 2 -status post mechanical fall -hip x-ray showed impacted transcervical neck fracture of the left femur -Continue morphine, [place] for pain modulation -orthopedic surgery on board, performed open reduction with internal fixation of left femoral neck fracture on 04/23/2024 -Resume normal diet (carbohydrate/diabetic) -Continue physical therapy UTI -urinalysis came back positive for UTI -Continue IV ceftriaxone -order urine culture, still pending Severe advanced dementia -patient unable to communicate and maintain a conversation -patient is alert but not oriented -on home hospice Primary hypertension -Continue losartan 12.5 mg q.d. -monitor blood pressure closely -control pain Type 2 diabetes mellitus -ordered hemoglobin A1c which came back at 5.9% (prediabetic range) -Monitor BG at this time DVT prophylaxys -Continue enoxaparin 40mg sc QD. Goals of care discussed with the family at bedside for >23min, DNR Plan discussed with Dr. Francois Plan discussed with: Other My Orders My Orders Orders - SHAD WRIGHT Procedure Category Date Status Time * Business Professor CONS 04/25/24 Transmitted Consult * Wound Consult CONS 04/25/24 Transmitted Pt Request For Service PT 04/25/24 Logged 10:31 Date of Service: Apr 25, 2024 Billing Provider: BRYCE FRANCOIS MD Common Visit Codes: [id number] INP/OBS CARE(HIGH) SHAD WRIGHT RESIDENT Apr 25, 2024 11:38 BRYCE FRANCOIS MD Apr 28, 2024 04:49
[2024-04-25 13:00] VITALS: BP 99/59; PULSE 94; RESP 15; TEMP 97.4; O2SAT 98
[2024-04-25 16:49] VITALS: BP 120/75; PULSE 100; RESP 16; TEMP 98; O2SAT 98
[2024-04-25 21:00] VITALS: BP 133/60; PULSE 120; RESP 17; TEMP 98; O2SAT 95
[2024-04-26 05:00] VITALS: BP 126/67; PULSE 98; RESP 18; TEMP 98; O2SAT 94
[2024-04-26 05:14] LABS: Basophils # (auto) 0 10 ^3/uL (0-0.2); Basophils % (auto) 0.7 % (0.0-2.0); Eosinophils # (auto) 0.3 10 ^3/uL (0-0.8); Eosinophils % (auto) 4.9 % (0.0-7.0); Hematocrit 26.2 % (36.0-46.0); Hemoglobin 8.8 g/dL (12.2-16.2); Lymphocytes # (auto) 1.3 10 ^3/uL (0.4-5.4); Lymphocytes % (auto) 22.9 % (10.0-50.0); Mean Corpuscular Hemoglobin 32.1 pg (28.0-32.0); Mean Corpuscular Hgb Conc. 33.7 g/dL (32.0-36.0); Mean Corpuscular Volume 95.4 fL (80.0-100.0); Monocytes # (auto) 0.5 10 ^3/uL (0-1.3); Monocytes % (auto) 8.5 % (0.0-12.0); Neutrophils # (auto) 3.5 10 ^3/uL (1.6-8.6); Nucleated Red Blood Cells % 0.1 %; Platelet Count (auto) 333 10^3/uL (140-450); Red Blood Cells 2.74 10^6/uL (4.0-5.20); Red Cell Distribution Width 13.9 % (11.8-14.3); White Blood Cell 5.6 10^3/uL (4.4-10.8)
[2024-04-26 05:26] LABS: Chloride 107 mmol/L (98-107); Potassium 3.9 mmol/L (3.5-5.1); Sodium 136 mmol/L (136-145)
[2024-04-26 05:27] LABS: Anion Gap 9 (5-15); Carbon Dioxide 20 mmol/L (20-31)
[2024-04-26 05:28] LABS: Calcium 8.8 mg/dL (8.7-10.4)
[2024-04-26 05:32] LABS: Glucose 126 mg/dL (74-106)
[2024-04-26 05:33] LABS: BUN/Creatinine Ratio 29.1 (10.0-20.0); Blood Urea Nitrogen 23 mg/dL (9-23)
[2024-04-26 09:00] VITALS: BP 133/61; PULSE 93; RESP 16; TEMP 98.2; O2SAT 96
--- NOTE | 2024-04-26 09:51 | DVHDSRES ---
Discharge Summary Date of Admission Resident Creating Document: SHAD WRIGHT RESIDENT Apr 22, 2024 at 17:57 Date of Discharge: Apr 26, 2024 Admitting Diagnosis Left hip fracture Wounds: No wounds present at this time. Labs/Diagnostic Data: Laboratory Results Test 04/26/24 04:46 04/25/24 05:18 04/23/24 06:19 04/22/24 20:00 White Blood Count 5.6 10^3/uL (4.4-10.8) Red Blood Count 2.74 10^6/uL (4.0-5.20) Hemoglobin 8.8 g/dL (12.2-16.2) Hematocrit 26.2 % (36.0-46.0) Mean Corpuscular Volume 95.4 fL (80.0-100.0) Mean Corpuscular Hemoglobin 32.1 pg (28.0-32.0) Mean Corpuscular Hemoglobin Concent 33.7 g/dL (32.0-36.0) Red Cell Distribution Width 13.9 % (11.8-14.3) Platelet Count 333 10^3/uL (140-450) Mean Platelet Volume 7.5 fL (6.9-10.8) Neutrophils (%) (Auto) 63.0 % (37.0-80.0) Lymphocytes (%) (Auto) 22.9 % (10.0-50.0) Monocytes (%) (Auto) 8.5 % (0.0-12.0) Eosinophils (%) (Auto) 4.9 % (0.0-7.0) Basophils (%) (Auto) 0.7 % (0.0-2.0) Neutrophils # (Auto) 3.5 10 ^3/uL (1.6-8.6) Lymphocytes # (Auto) 1.3 10 ^3/uL (0.4-5.4) Monocytes # (Auto) 0.5 10 ^3/uL (0-1.3) Eosinophils # (Auto) 0.3 10 ^3/uL (0-0.8) Basophils # (Auto) 0 10 ^3/uL (0-0.2) Nucleated Red Blood Cells 0.1 % Sodium Level 136 mmol/L (136-145) Potassium Level 3.9 mmol/L (3.5-5.1) Chloride Level 107 mmol/L (98-107) Carbon Dioxide Level 20 mmol/L (20-31) Anion Gap 9 (5-15) Blood Urea Nitrogen 23 mg/dL (9-23) Creatinine 0.79 mg/dL (0.550-1.02) Glomerular Filtration Rate Calc 71 mL/min (>90) BUN/Creatinine Ratio 29.1 (10.0-20.0) Serum Glucose 126 mg/dL (74-106) Calcium Level 8.8 mg/dL (8.7-10.4) Magnesium Level 2.0 mg/dL (1.6-2.6) Total Bilirubin 0.4 mg/dL (0.2-1.0) Aspartate Amino Transferase (AST) 17 U/L (13-40) Alanine Aminotransferase (ALT) 14 U/L (7-40) Alkaline Phosphatase 102 U/L (46-116) Total Protein 6.3 g/dL (5.7-8.2) Albumin 3.5 g/dL (3.2-4.8) Prothrombin Time 11.6 sec (9.3-11.8) Prothrombin Time INR 1.10 (0.9-1.15) Activated Partial Thromboplast Time 36.2 SEC (24.5-34.5) Hemoglobin A1c 5.9 % A1C (<5.7) Vitamin D 25-Hydroxy 46.7 ng/mL (30.0-100) POC Glucose 131 mg/dl (70-106) Test 04/22/24 16:23 Urine Color Yellow (Yellow) Urine Clarity Turbid (Clear) Urine pH 7.5 (5.0-9.0) Urine Specific [place] 1.023 (1.001-1.035) Urine Protein 2+ (Negative) Urine Ketones Negative (Negative) Urine Blood Negative /uL (Negative) Urine Nitrite Negative (Negative) Urine Bilirubin Negative (Negative) Urine Urobilinogen Normal mg/dL (Negative) Urine Leukocyte Esterase 2+ /uL (Negative) Urine RBC <1 /hpf (0 - 4) Urine WBC 27 /hpf (0 - 5) Urine Squamous Epithelial Cells Mod /hpf (<5) Urine Triple Phosphate Crystals Few /hpf (None Seen) Urine Bacteria Few /hpf (None Seen) Urine Mucus Few (None Seen) Urine Yeast (Budding) Moderate /hpf (None Seen) Urine Glucose Normal mg/dL (Normal) Other Laboratory Tests 04/26/24 04:46 Brief Hx & Hospital Course: This is an 88-year-old female with past medical history of severe advanced dementia, presents to the ED brought by her family due to a mechanical fall at home while walking. The patient was initially complaining of pain in the left side of the hip. Upon my examination patient is but not oriented and not able to maintain a proper conversation. Initial chest x-ray was showing very mild vascular congestion but grossly unremarkable. Hip x-ray is showing impacted transcervical neck fracture of the left femur. Findings were discussed with her daughter Inge which agreed on proceeding with left hip surgical repair. Orthopedic surgery was consulted for Open reduction with internal fixation of left hip fracture day 3. The patient is currently working with physical therapy. Patient will be resumed on home hospice on discharge. We explain to the family that we needed to continue anticoagulation prophylaxys for 6 weeks to prevent clot formations. family agreed and understood. patient will be discharged to home hospice with apixaban 2.5 mg b.i.d. for six weeks. ROS unable to obtain due to patient's current severe advanced dementia. Physical Examination General: Patient alert but disoriented, patient speak nonsense words due to dementia. patient is not able to maintain a proper conversation likely due to advance dementia. HEENT: Normocephalic, atraumatic, moist mucous membranes Respiratory/pulmonary: Clear lungs bilaterally, no associated crackles or wheezes. Cardiovascular: Normal heart sounds S1 and S2 with no associated murmurs Abdomen: Abdomen nondistended, there is no pain to palpation in any of the abdominal quadrants, no palpable masses. Extremities: Both lower extremity appears symmetric. There is no peripheral edema present at the lower extremities. Peripheral Pulses: 3+ Radial (R). 3+ Radial (L). 3+ Dorsalis pedis (R). 3+ Dorsalis pedis(L) Skin: No rashes or pruritus, there is no sacral edema present at this time. Neurological: Severe advanced dementia, unable to evaluate cranial nerves. Consults/Reason for consult Orthopedic surgery was consulted for Open reduction with internal fixation of left hip fracture Operations or Procedures EXAM: XY L HIP COMPLETE XRAY CLINICAL HISTORY: fall COMPARISON: None TECHNIQUE: XY L HIP COMPLETE XRAY Findings/Impression: 2 views of the left hip. Impacted, transcervical neck fracture of the left femur. There is no evidence of dislocation, blastic, or lytic lesions. No radiopaque foreign bodies. No joint effusion or superficial soft tissue abnormalities. CHEST RADIOGRAPH Indication:cad Technique: Single frontal view of the chest was obtained COMPARISON: None FINDINGS: Lines and Tubes: None Lungs: Congestion Pleura: No effusion. No pneumothorax. Cardiomediastinal contours: Unremarkable Bones: Unremarkable IMPRESSION: Mild congestion CLINICAL INDICATION: LEFT HIP PINNING TECHNIQUE: 17 radiographic views of the open reduction internal fixation of a left fracture were obtained. Comparison: XY L HIP COMPLETE XRAY on DOS: 04/22/24 FINDINGS/IMPRESSION: 16 images open reduction internal fixation left hip fracture. C-ARM FLUOROSCOPY: PROCEDURE: Left hip ORIF FLUOROSCOPY TIME: 22.9 seconds DAP: 1.87 mgy FINDINGS: Spot intraoperative C arm radiographs demonstrating left hip ORIF. IMPRESSION: Please refer to surgical report for detailed findings. DATE OF SURGERY: 04/22/2024 PREOPERATIVE DIAGNOSIS: Left hip femoral neck fracture. POSTOPERATIVE DIAGNOSIS: Left hip femoral neck fracture. PROCEDURES: * Open reduction internal fixation of left femoral neck fracture. * Left hip stress radiographs. SURGEON: Quinn Titus MD ANESTHESIA: General. COMPLICATIONS: None. CONDITION: Stable to PACU. ASSESSMENT AND PLAN: 1. Toe touch weightbearing on the left lower extremity. 2. PT, OT out of bed daily. 3. Follow up in 2 weeks' time. SURGICAL INDICATIONS: Estefanía Knott is an 88-year-old demented female who was noted to have a displaced femoral neck fracture. The patient was educated on the risks and benefits of surgical and nonsurgical treatment. The family was educated on the risks associated with surgical treatment of the left lower extremity. They understood the risks associated with fracture fixation of the left lower extremity and opted for surgical fixation. DESCRIPTION OF PROCEDURE: The patient was seen in the preoperative holding area and the left lower extremity was marked. The patient was brought to the operating room suite. General anesthesia was then induced. Timeout was performed according to the hospital protocol. AP and lateral x-rays were then checked. The patient was given Ancef for infection prophylaxis and a 3 cm incision was made on the lateral aspect of the trochanter. A guidewire was then placed on AP and lateral x-rays to be center-center and then an inferior screw was also placed slightly posterior. Once that was then done, it was measured to be 90 mm inferiorly and 85 mm superiorly, it was then drilled followed by a simply fixed 90 mm screw inferiorly and 85 mm screw superiorly and then using a percutaneous technique, the locking screw with a 0 degree slot was then used for stabilization and locking. It was measured to be 65 mm length. The drill was then measured, followed by 65 mm screw then placed in the appropriate position. Once that was then done, the stress radiographs of the left hip showed actual compression. There is no fracture gapping. Stress radiographs were then done, the wound was irrigated with copious amount of saline and closed with 0 Vicryl, 2-0 Vicryl and kristi. The patient will be toe touch weightbearing on the left lower extremity. PT, OT out of bed daily. Follow up in 2 weeks' time. Condition at Discharge: Stable Final Diagnosis/Problems List Acute transcervical neck fracture of left femur, due to mechanical fall S/P open reduction with internal fixation of the left femoral neck fracture UTI Severe advanced dementia Primary hypertension Type 2 diabetes mellitus Discharge Disposition: Hospice - Home Discharge Instruct/Medications Diet: Regular Activity: No Restrictions, As Tolerated Follow Up/Referral: F/U with her PCP in 1-2 week Medications: Apixaban 2.5mg BID for 6 weeks Discharge Statement: "Patient was advised to return to the ER or call 911 if any headaches, dizziness, shortness of breath, chest pain, abdominal pain, bleeding, fevers, or worsening of medical condition. Patient was counseled about treatment plan, medications, possible side effects, patientverbalized understanding. All questions were answered to the best of my ability. This discharge took greater then 30 minutes in planning, reviewing documentation, counseling the patient, and discussing with other team members." ASSESSMENT ASSESSMENT Assessment Acute transcervical neck fracture of left femur, due to mechanical fall S/P open reduction with internal fixation of the left femoral neck fracture UTI Severe advanced dementia Primary hypertension Type 2 diabetes mellitus Date of Service: Apr 26, 2024 Billing Provider: BRYCE WRIGHT MD Common Visit Codes: [id number] DISCH DAY >30min SHAD WRIGHT RESIDENT Apr 26, 2024 09:51 BRYCE WRIGHT MD Apr 28, 2024 04:50
[2024-04-26] MEDS ORDERED: APIX2.5T PO (09:52)
[2024-04-26 10:15] VITALS: BP 111/60; TEMP 36.8
[2024-04-26 13:00] VITALS: BP 108/53; PULSE 94; RESP 18; TEMP 98; O2SAT 96
== END 2024-04-26 13:30 | disposition hospice, inpatient (51) | DRG 481 ==
LOC: EDBD 11:43 → ER 11:43 → OVERFLOW 17:57 → ER 18:04 → WEST WING 21:16
PROVIDERS: ADMIT Internal Medicine Geriatric Medicine; ATTEND Emergency Medicine
PROC: 0QS704Z Reposition Left Upper Femur with Internal Fixation Device, Open Approach (ICD-10-PCS; principal; 2024-04-23 14:47)
DX: S72.032A Displaced midcervical fracture of left femur, initial encounter for closed fracture (principal); N30.00 Acute cystitis without hematuria; E11.9 Type 2 diabetes mellitus without complications; Z66 Do not resuscitate; F02.C0 Dementia in other diseases classified elsewhere, severe, without behavioral disturbance, psychotic disturbance, mood disturbance, and anxiety; G30.9 Alzheimer's disease, unspecified; I10 Essential (primary) hypertension; W18.39XA Other fall on same level, initial encounter; Y93.89 Activity, other specified; Y92.89 Other specified places as the place of occurrence of the external cause; Y99.8 Other external cause status
CPT/HCPCS: 36415; 71045; 73502; 76000; 80048; 80053; 81001; 82306; 82962; 83036; 83735; 85025; 85610; 85730; 86850; 86900; 86901; 87086; 97110; 97116; 97163; 97530; G0378; J2250; J2704